=== PATIENT | male | born 1980 | race Caucasian/White ===

== ENCOUNTER 2017-07-05 11:54 | Emergency (ER) | payer BC ==
--- NOTE | 2017-07-05 13:14 | RAD ---
ABDOMEN TWO VIEWS: CHEST ONE VIEW: HISTORY: A 36-year-old male with a history of sudden epigastric pain, superior to the umbilicus. COMPARISON: 01/30/2012 FINDINGS: No acute intrathoracic disease. The abdomen shows some minimal fecal material. No evidence of large or small bowel obstruction. No free intraperitoneal air. No overt calculus. IMPRESSION: Unremarkable abdomen two views and chest one view. POS: [facility]ALIS
== END 2017-07-05 13:25 | disposition home or self-care (01) ==
LOC: SCSER 11:54
DX: K42.0 Umbilical hernia with obstruction, without gangrene (principal); Z79.899 Other long term (current) drug therapy
CPT/HCPCS: 74022

== ENCOUNTER 2017-07-19 09:51 | Outpatient (CLI) | payer BC ==
[2017-07-19 11:13] LABS: #Basophils 0.1 thou/uL (0.0-0.2); #Eosinphils 0.2 thou/uL (0.0-0.7); #Lymphocytes 2.2 thou/uL (1.20-3.40); #Monocytes 0.5 thou/uL (0.11-0.59); #Neutrophils 2.4 thou/uL (1.40-6.50); %Basophils 1.5 % (0.0-1.0); %Eosinophils 3.4 % (0.0-10.0); %Lymphocytes 40.8 % (21.0-51.0); %Monocytes 8.9 % (0.0-10.0); %Neutrophils 45.5 % (42.0-75.0); Hemoglobin 14.7 g/dL (14.0-18.0); Mean Corpuscular HGB CONC 33.9 g/dL (32.0-36.0); Mean Corpuscular Hemoglobin 30.5 pg (27.0-31.0); Mean Corpuscular Volume 89.8 fl (80.0-94.0); Mean Platelet Volume 6.5 fL (7.4-10.4); Platelet Count 240 thou/uL (130-400); RBC Distribution Width 11.6 % (11.5-14.5); Red Blood Cell (RBC) Count 4.83 mill/uL (4.70-6.10); White Blood Cell (WBC) Count 5.3 thou/uL (4.8-10.8)
[2017-07-19 11:34] LABS: Anion Gap 13 mmol/L (10-20); BUN (Urea Nitrogen) 16 mg/dL (8.9-20.6); Calc. Creatinine Clearance 0 mL/min (70-130); Carbon Dioxide 27 mmol/L (22-29); Chloride 103 mmol/L (98-107); Estimated GFR-MDRD Greater than 90; Glucose 97 mg/dL (70-105); Potassium 4.8 mmol/L (3.5-5.1); Sodium 138 mmol/L (136-145)
--- NOTE | 2017-07-19 12:21 | EKG ---
Test Reason : Blood Pressure : / mmHG Vent. Rate : 061 BPM Atrial Rate : 061 BPM P-R Int : 140 ms QRS Dur : 104 ms QT Int : 398 ms P-R-T Axes : 040 068 050 degrees QTc Int : 400 ms Normal sinus rhythm Normal ECG No previous ECGs available Confirmed by ELYSIA MALONEY ([id number]) on 07/19/2017 12:21:12 PM Referred By: AISHA Confirmed By:ELYSIA MALONEY
== END 2017-07-19 09:52 | disposition home or self-care (01) ==
LOC: LABBT 09:51
PROVIDERS: ATTEND Specialist
DX: Z01.818 Encounter for other preprocedural examination (principal); K42.9 Umbilical hernia without obstruction or gangrene
CPT/HCPCS: 80048; 85025; 93005; 93010

== ENCOUNTER 2017-07-26 06:03 | Day surgery (SDC) | payer BC ==
--- NOTE | 2017-07-18 22:28 | HP ---
HISTORY OF PRESENT ILLNESS: Olvin Esteves is a 36-year-old male, 251 pounds, 72 inches, 34 BMI, p resents with an umbilical hernia. This is bothersome to him. He was seen in the emergency room. Th is was reduced and he hopes that repair is to prevent future incarceration. The patient works in [employer] in [employer]. Plan is robotic mesh repair of umbilical hernia. He understands risk s of infection, bleeding, reoperation and consents. PAST MEDICAL HISTORY: Gluten insensitivity, although not evaluated endoscopically or biopsied and as thma. PAST SURGICAL HISTORY: Ankle surgery. ALLERGIES: ASPIRIN, narcotic analgesics cause nausea. I have informed him this is not an allergy. MEDICATIONS: Claritin, multivitamins, CoQ10, ibuprofen, Imodium. REVIEW OF SYSTEMS: Noncontributory. PHYSICAL EXAMINATION: VITAL SIGNS: Weight 251 pounds, 72 inches, blood pressure 117/77, pulse 75, temperature 97.6 degrees , 34 BMI. LUNGS: Clear to auscultation. CARDIAC: Regular rate and rhythm without murmur or gallop. ABDOMEN: Soft, slightly obese. Umbilical hernia present, reducible. ASSESSMENT AND PLAN: Umbilical hernia. Plan, robotic mesh repair as an outpatient. He understands risks and benefits and consents.
[2017-07-19 10:17] VITALS: BMI 34.8
[2017-07-26] MEDS ORDERED: CEFAZOLIN/Water 2 GM/20 ML SYRINGE ONE (06:21)
[2017-07-26] MEDS ORDERED: Ketorolac Tromethamine 30 MG/ML VIAL ONE (06:21)
[2017-07-26] MEDS ORDERED: Fentanyl 100 MCG/2 ML VIAL ONE ×2 (06:58→10:17)
[2017-07-26] MEDS ORDERED: Bupivacaine/Epinephrine 0.25% 30 ML VIAL ONE (06:58)
[2017-07-26] MEDS ORDERED: HYDROmorphone 0.5 MG/0.5 ML SYRINGE ONE (06:59)
--- NOTE | 2017-07-26 11:14 | OP ---
DATE OF SURGERY: 07/26/2017 PREOPERATIVE DIAGNOSIS: Incarcerated ventral hernia, umbilical area. POSTOPERATIVE DIAGNOSIS: Incarcerated ventral hernia, umbilical area. PROCEDURES: Robotic mesh repair, Ventralight, 9 cm round (11 cm mesh cut down to 9 cm) mesh, reinfor cement of primary closure of fascial defect. SURGEON: Dr. Carlos Manuel Portillo. ANESTHESIA: General. Local 0.5% Marcaine with epinephrine, 30 mL total volume used. PROCEDURE: The patient was taken to the operating room. Once general anesthesia, abdomen was clippe d of hair, prepared with ChloraPrep, draped in routine fashion. A Imchelle catheter placed at the begin laura of the procedure, removed at the end. Trocar catheters prepared for placement by injecting loca l anesthetic into skin and subcutaneous tissue about the operative site and subxiphoid incision made and bilateral subcostal lateral incisions made, and pneumoperitoneum to 15 mmHg obtained with Veress needle replacing it with the 11 port subxiphoid. Laparoscope inserted. Remainder of the ports place d under laparoscopic visualization. Bilateral far lateral subcostal ports placed, 8 mm. Falciform l igament was then taken down with the cautery using robotic endoscopic approach. Once this was taken down, clearing the abdominal wall, the preperitoneal fat was taken down from the umbilical hernia def ect, which measured about a 2.5 to 3 cm in diameter. The incarcerated omental contents were reduced with manual compression and the remainder of the fat taken down from the fascia circumferentially to accommodate the mesh. The fascia was then approximated with continuous suture of #0 V-Loc continuous suture approximating the fascial defect to reduce the pneumoperitoneum to 9 mmHg. The 11 mm Ventral ight mesh then cut down to a 9 cm diameter and placed through the port site, and approximated to the ventral hernia defect, which had been closed with a suture needle. Continuous suture of 3-0 V-Loc wa s then used to approximate the mesh to the abdominal wall using 2 sutures. Once this was completed, sutures were removed, repair inspected, and noted to be well placed mesh centered about the umbilical hernia defect. Pneumoperitoneum reduced after subxiphoid 11 mm port site closed with 0 Vicryl GraNe e needle. Pneumoperitoneum reduced and all instruments removed and all skin incisions approximated w ith interrupted subdermal 4-0 Monocryl and DermaGlue applied.
[2017-07-26] MEDS ORDERED: HYDROcodone/Acetaminophen 5/325 mg Tablet ONE (12:03)
== END 2017-07-26 15:28 | disposition home or self-care (01) ==
LOC: SDC 06:03 → EEVIPCON 09:30 → SDC 15:28
PROVIDERS: ATTEND Specialist
PROC: 0WUF4JZ Supplement Abdominal Wall with Synthetic Substitute, Percutaneous Endoscopic Approach (ICD-10-PCS; principal; 2017-07-26)
DX: K42.0 Umbilical hernia with obstruction, without gangrene (principal); J45.909 Unspecified asthma, uncomplicated; Z88.6 Allergy status to analgesic agent; Z79.82 Long term (current) use of aspirin; Z88.5 Allergy status to narcotic agent; Z79.899 Other long term (current) drug therapy
CPT/HCPCS: 96374; C1781; J0131; J1170; J1885; J3010